=== PATIENT | female | born 1995 | race Caucasian/White ===

== ENCOUNTER 2021-11-15 07:09 | Emergency (ER) | payer BC, OTHER ==
[2021-11-15 07:24] VITALS: BP 128/86; PULSE 90; TEMP 99.5; BMI 20.6
== END 2021-11-15 08:25 | disposition home or self-care (01) ==
LOC: JER 07:09
DX: R68.83 Chills (without fever) (principal); R53.83 Other fatigue
CPT/HCPCS: 0241U-QW; 99283-25

== ENCOUNTER 2021-11-27 14:49 | Emergency (ER) | payer OTHER, BC ==
[2021-11-27 15:02] VITALS: BP 117/79; PULSE 79; TEMP 98.3; BMI 20.9
[2021-11-27] MEDS ORDERED: KETOROLAC TROMETHAMINE 30 MG/1 ML VIAL IM ONE (15:55)
[2021-11-27] MEDS ORDERED: diazePAM 5 MG TABLET PO ONE (15:56)
[2021-11-27] MEDS ORDERED: LIDOCAINE 5% TOPICAL PATCH TP ONE (15:56)
[2021-11-27] MEDS ORDERED: LIDOCAINE 5% TOPICAL PATCH ONE ×2 (16:05→16:10)
[2021-11-27] MEDS ORDERED: LIDOCAINE PATCH REMOVAL MC SCH (22:00)
== END 2021-11-27 16:10 | disposition home or self-care (01) ==
LOC: JERFT 14:49
PROC: 3E0233Z Introduction of Anti-inflammatory into Muscle, Percutaneous Approach (ICD-10-PCS; principal; 2021-11-27)
DX: M79.604 Pain in right leg (principal)
CPT/HCPCS: 99284-25